=== PATIENT | female | born 1995 | race Caucasian/White ===

== ENCOUNTER 2017-01-14 18:54 | Observation (INO) | payer MEDICAID ==
[~2017-01-14 18:54] MED LIST: AUGMENTIN 875-1 EAC2 PO; BACTRIM DS TAB1 EAC2 PO; COMPAZINE10 MG PO; CYCLOBENZAPRINE10 M1 PO; FAMOTIDINE20 M3 PO; FERROUS SULFAT325 MG PO; IRON325 M2 PO; LEXAPRO20 M2 PO; NORCO 5-325 TA1 EACH PO; PAXIL20 M1 PO; PEPCID40 M1 PO; PRENATAL VITAM1 EAC5 PO; PROVENTIL HFA6.7 G1 IH; TYLENOL WITH C1 EACH PO; VISTARIL50 M1 PO; ZOFRAN4 M2 PO; ZYRTEC1010 PO
[2017-01-14] MEDS ORDERED: PRENATAL GUMMI1 EACH PO (20:14)
[2017-01-14 21:40] LABS: URINE APPEARANCE HAZY; URINE BILIRUBIN NEGATIVE (NEG); URINE BLOOD NEGATIVE (NEG); URINE COLOR YELLOW; URINE GLUCOSE (UA) NEGATIVE (NEG); URINE KETONE NEGATIVE (NEG); URINE LEUKOCYTE ESTERASE NEGATIVE (NEG); URINE NITRITE NEGATIVE (NEG); URINE PROTEIN NEGATIVE (NEG)
[2017-01-14 21:44] LABS: URINE AMORPHOUS 3+; URINE RBC RARE /[HPF] (0-5); URINE WBC RARE /[HPF] (0-5)
[2017-01-31] MEDS ORDERED: NORCO 5-325 TA1 EACH PO (09:17)
[2017-02-12] MEDS ORDERED: TYLENOL EXTRA500 M1 PO (13:20)
[2017-02-12] MEDS ORDERED: ZOFRAN4 M2 PO (15:15)
[2017-02-12] MEDS ORDERED: PERCOCET 5-3251 EACH PO (15:15)
== END 2017-01-14 22:59 ==
LOC: LDR 18:54
PROVIDERS: Obstetrics & Gynecology; ADMIT Obstetrics & Gynecology Obstetrics
DX: O36.8130 Decreased fetal movements, third trimester, not applicable or unspecified (principal); O99.89 Other specified diseases and conditions complicating pregnancy, childbirth and the puerperium; R10.2 Pelvic and perineal pain; O99.333 Smoking (tobacco) complicating pregnancy, third trimester; F17.210 Nicotine dependence, cigarettes, uncomplicated; Z3A.38 38 weeks gestation of pregnancy; Z79.899 Other long term (current) drug therapy; Z88.8 Allergy status to other drugs, medicaments and biological substances; Z98.890 Other specified postprocedural states

== ENCOUNTER 2017-01-17 15:29 | Observation (INO) | payer MEDICAID ==
[~2017-01-17 15:29] MED LIST changes: +PRENATAL GUMMI1 EACH PO
[2017-01-17] MEDS ORDERED: ZOFRAN4 M2 PO (16:47)
[2017-01-31] MEDS ORDERED: NORCO 5-325 TA1 EACH PO (09:17)
[2017-02-12] MEDS ORDERED: TYLENOL EXTRA500 M1 PO (13:20)
[2017-02-12] MEDS ORDERED: ZOFRAN4 M2 PO (15:15)
[2017-02-12] MEDS ORDERED: PERCOCET 5-3251 EACH PO (15:15)
== END 2017-01-17 18:27 ==
LOC: LDR 15:29
PROVIDERS: ADMIT Obstetrics & Gynecology Obstetrics
DX: O47.1 False labor at or after 37 completed weeks of gestation (principal); Z3A.38 38 weeks gestation of pregnancy; J45.909 Unspecified asthma, uncomplicated; F41.9 Anxiety disorder, unspecified; E28.2 Polycystic ovarian syndrome; Z88.8 Allergy status to other drugs, medicaments and biological substances
CPT/HCPCS: G0378